=== PATIENT | male | born 2000 | race Two or more races ===

== ENCOUNTER 2022-05-17 11:53 | Emergency (ER) | payer BC, MEDICAID ==
[~2022-05-17] VITALS: Ht 172.7 cm; Wt 99.8 kg
[2022-05-17] MEDS ORDERED: METHOCARBAMOL (500MG) 500 MG TABLET PO ONE (12:30)
[2022-05-17] MEDS ORDERED: IBUPROFEN 600 MG TABLET PO ONE (12:30)
--- NOTE | 2022-05-17 12:35 | NUR ---
WOOD GRAINER AT BEDSIDE FOR XRAY
[2022-05-17] MEDS ORDERED: IBUPROFEN 600 MG TABLET ONE (12:38)
[2022-05-17] MEDS ORDERED: METHOCARBAMOL (500MG) 500 MG TABLET ONE (12:39)
[2022-05-17] MEDS ORDERED: METH-647 PO (12:57)
[2022-05-17] MEDS ORDERED: IBUP-1957 PO (12:57)
[2022-05-17 13:10] VITALS: BP 120/70
== END 2022-05-17 13:24 | disposition home or self-care (01) ==
LOC: ER 11:57
DX: M54.50 Low back pain, unspecified (principal)
CPT/HCPCS: 72100-TC

== ENCOUNTER 2023-05-09 18:30 | Emergency (ER) | payer BC ==
[~2023-05-09] VITALS: Ht 172.7 cm; Wt 99.8 kg
[~2023-05-09 18:30] MED LIST: IBUP-1957 PO; METH-647 PO
[2023-05-09 18:54] VITALS: TEMP 98
[2023-05-09] MEDS ORDERED: CYCLOBENZAPRINE 10 MG TABLET ONE (19:38)
[2023-05-09] MEDS ORDERED: IBUPROFEN 400 MG TABLET ONE (19:38)
[2023-05-09] MEDS: CYCLOBENZAPRINE 10 MG TABLET PO ONE (19:39)
[2023-05-09] MEDS: IBUPROFEN 400 MG TABLET PO ONE (19:39)
[2023-05-09] MEDS ORDERED: CYCL5TAB PO (19:58)
[2023-05-09] MEDS ORDERED: KETO10TA2 PO (19:58)
[2023-05-09 20:05] VITALS: BP 143/84; O2SAT 98
== END 2023-05-09 20:06 | disposition home or self-care (01) ==
LOC: ER 18:32
DX: M54.50 Low back pain, unspecified (principal); M25.561 Pain in right knee; W05.1XXA Fall from non-moving nonmotorized scooter, initial encounter; Y93.89 Activity, other specified; Y92.89 Other specified places as the place of occurrence of the external cause; Y99.8 Other external cause status
CPT/HCPCS: 72131-TC; 73564-TC

== ENCOUNTER 2023-11-01 22:24 | Emergency (ER) | payer BC ==
[~2023-11-01] VITALS: Ht 180.3 cm; Wt 102.1 kg
[~2023-11-01 22:24] MED LIST changes: +CYCL5TAB PO; +KETO10TA2 PO
[2023-11-02] MEDS ORDERED: AMOXICILLIN TRIHYDRATE 250 MG CAPSULE ONE (00:06)
[2023-11-02] MEDS ORDERED: ACETAMINOPHEN ES 500 MG TABLET ONE (00:07)
[2023-11-02] MEDS: AMOXICILLIN TRIHYDRATE 500 MG CAPSULE PO ONE (00:08)
[2023-11-02] MEDS: ACETAMINOPHEN ES 500 MG TABLET PO ONE (00:08)
[2023-11-02] MEDS ORDERED: AMOX500C2 PO (00:28)
[2023-11-02] MEDS ORDERED: ACET-2605 PO (00:28)
[2023-11-02] MEDS ORDERED: IBUP-1955 PO (00:28)
[2023-11-02 00:38] VITALS: BP 138/78; TEMP 99.1; O2SAT 98
== END 2023-11-02 00:38 | disposition home or self-care (01) ==
LOC: ER 22:27
DX: H66.91 Otitis media, unspecified, right ear (principal); Z20.822 Contact with and (suspected) exposure to COVID-19

== ENCOUNTER 2023-11-09 14:22 | Emergency (ER) | payer BC ==
[~2023-11-09] VITALS: Ht 172.7 cm; Wt 99.8 kg
[~2023-11-09 14:22] MED LIST changes: +ACET-2605 PO; +AMOX500C2 PO; +IBUP-1955 PO
[2023-11-09 14:46] VITALS: BP 136/69; TEMP 98.6
[2023-11-09] MEDS ORDERED: IBUPROFEN 600 MG TABLET ONE (14:55)
[2023-11-09] MEDS: IBUPROFEN 600 MG TABLET PO ONE (14:57)
[2023-11-09] MEDS ORDERED: ACET-2605 PO (15:02)
[2023-11-09] MEDS ORDERED: IBUP-1955 PO (15:02)
[2023-11-09 15:23] VITALS: O2SAT 100
== END 2023-11-09 15:27 | disposition home or self-care (01) ==
LOC: ER 14:27
DX: H66.93 Otitis media, unspecified, bilateral (principal)